=== PATIENT | female | born 1980 | race Asian ===

== ENCOUNTER 2016-11-29 01:03 | Inpatient (IN) | payer OTHER ==
[~2016-11-29] VITALS: Ht 160 cm; Wt 67.1 kg
[2016-11-29 02:03] VITALS: BP 106/66
[2016-11-29] MEDS ORDERED: PREN1TAB89 PO (02:09)
[2016-11-29] MEDS ORDERED: RINGERS SOLUTION,LACTATED 1,000 ML IV PRN (02:19)
[2016-11-29] MEDS ORDERED: RINGERS SOLUTION,LACTATED 1,000 ML IV SCH (02:19)
[2016-11-29] MEDS ORDERED: OXYTOCIN 30 UNITS/LACT RINGERS 500 ML IV ONE (02:19)
[2016-11-29] MEDS ORDERED: MAGNESIUM SULFATE 500 ML IV SCH (02:28)
[2016-11-29] MEDS ORDERED: AMPICILLIN SODIUM 2 GM/NS 100 ML IV ONE (02:30)
[2016-11-29] MEDS ORDERED: CALCIUM GLUCONATE 100 MG/ML 10 ML IVP PRN (02:30)
[2016-11-29] MEDS ORDERED: METOCLOPRAMIDE HCL 5 MG/ML 2 ML VIAL IVP PRN (02:30)
[2016-11-29] MEDS ORDERED: CITRIC ACID/SODIUM CITRATE 30 ML SOLUTION UDCUP PO PRN (02:30)
[2016-11-29] MEDS ORDERED: BETAMETHASONE SOLUSPAN 6 MG/ML 5 ML VIAL IM SCH (02:30)
[2016-11-29] MEDS ORDERED: MAGNESIUM SULFATE 4 GM/WATER 100 ML IV ONE (02:30)
[2016-11-29] MEDS ORDERED: FentaNYL CITRATE-PF 100 MCG/2 ML VIAL IVP PRN (02:30)
[2016-11-29 03:07] LABS: BASOPHILS # (AUTO) 0.01 K/uL (0.00-0.20); BASOPHILS % (AUTO) 0.1 % (0.0-2.0); EOSINOPHILS % (AUTO) 0.84 % (1.0-6.0); HEMATOCRIT 36.5 % (36-46); HEMOGLOBIN 12.4 g/dL (12.0-16.0); LYMPHOCYTES # (AUTO) 1.9 K/uL (1.0-4.8); LYMPHOCYTES % (AUTO) 16.2 % (22.0-44.0); MEAN CORPUSCULAR HEMOGLOBIN 32.9 pg (26.0-34.0); MEAN CORPUSCULAR HGB CONC 33.9 G/dL (31.0-37.0); MEAN CORPUSCULAR VOLUME 97 fL (80-100); MONOCYTES # (AUTO) 0.6 K/uL (0.1-1.0); MONOCYTES % (AUTO) 5.2 % (2.0-9.0); NEUTROPHILS # (AUTO) 8.9 K/uL (1.8-7.7); NEUTROPHILS % (AUTO) 77.7 % (40.0-70.0); RED BLOOD CELL COUNT(AUTO) 3.75 MIL/uL (4.00-5.20); RED CELL DISTRIBUTION WIDTH 12.9 % (11.5-14.5); WHITE BLOOD COUNT (AUTO) 11.4 K/uL (4.5-11.0)
[2016-11-29] MEDS ORDERED: FentaNYL/BUPIV 0.125%/NS/PF 200 ML ED ONE (04:35)
[2016-11-29] MEDS ORDERED: BUPIVACAINE HCL/PF 0.25% 10 ML VIAL ONE (04:38)
[2016-11-29] MEDS ORDERED: FentaNYL/BUPIV 0.125%/NS/PF 200 ML ED PRN (05:12)
[2016-11-29] MEDS ORDERED: ONDANSETRON HCL 4 MG/2 ML VIAL IVP PRN (05:15)
[2016-11-29] MEDS ORDERED: DiphenhydrAMINE HCL 50 MG/ML VIAL IVP PRN (05:15)
[2016-11-29] MEDS: AMPICILLIN SODIUM 1 GM/NS 50 ML IV SCH ×2 (06:49→11:16)
[2016-11-29] MEDS ORDERED: OXYGEN THERAPY IH SCH (08:00)
[2016-11-29] MEDS ORDERED: OXYTOCIN 20 UNITS/LACT RINGERS 1,000 ML IV ONE ×2 (12:55→13:00)
[2016-11-29] MEDS ORDERED: SENNA/DOCUSATE SODIUM 187-50 MG TABLET PO PRN (14:00)
[2016-11-29] MEDS ORDERED: MAGNESIUM HYDROXIDE SUSPENSION 30 ML UDCUP PO PRN (14:00)
[2016-11-29] MEDS ORDERED: LANOLIN 7 GM OINTMENT TP PRN (14:00)
[2016-11-29] MEDS ORDERED: ACETAMINOPHEN/CODEINE 300-30 MG TABLET PO PRN (14:00)
[2016-11-29] MEDS ORDERED: GLYCERIN/WITCH HAZEL LEAF 40 PADS JAR TP PRN (14:00)
[2016-11-29] MEDS ORDERED: BENZOCAINE 20%/MENTHOL 56 GM SPRAY CANISTER TP PRN (14:00)
[2016-11-29] MEDS: IBUPROFEN 600 MG TABLET PO PRN ×2 (17:50→23:50)
[2016-11-30 05:56] LABS: BASOPHILS % (AUTO) 0.1 % (0.0-2.0); EOSINOPHILS % (AUTO) 0.3 % (1.0-6.0); HEMOGLOBIN 9.2 g/dL (12.0-16.0); LYMPHOCYTES # (AUTO) 1.9 K/uL (1.0-4.8); LYMPHOCYTES % (AUTO) 11.2 % (22.0-44.0); MEAN CORPUSCULAR HEMOGLOBIN 32.9 pg (26.0-34.0); MEAN CORPUSCULAR HGB CONC 34.3 G/dL (31.0-37.0); MEAN CORPUSCULAR VOLUME 96 fL (80-100); MONOCYTES % (AUTO) 5.6 % (2.0-9.0); NEUTROPHILS # (AUTO) 14.3 K/uL (1.8-7.7); NEUTROPHILS % (AUTO) 82.8 % (40.0-70.0); RED BLOOD CELL COUNT(AUTO) 2.81 MIL/uL (4.00-5.20); WHITE BLOOD COUNT (AUTO) 17.3 K/uL (4.5-11.0)
[2016-11-30] MEDS: IBUPROFEN 600 MG TABLET PO PRN ×2 (08:29→14:41)
[2016-11-30] MEDS ORDERED: IBUP-2070 PO (15:39)
[2016-11-30] MEDS ORDERED: FERR-89 PO (15:40)
== END 2016-11-30 15:30 | disposition home or self-care (01) | DRG 775 ==
LOC: 4S 01:03 → OBSVTOIN 01:03
PROVIDERS: ADMIT Obstetrics & Gynecology; ATTEND Obstetrics & Gynecology
PROC: 10E0XZZ Delivery of Products of Conception, External Approach (ICD-10-PCS; principal; 2016-11-29)
PROC: 0KQM0ZZ Repair Perineum Muscle, Open Approach (ICD-10-PCS; 2016-11-29)
PROC: 3E0S3CZ (ICD-10-PCS; 2016-11-29)
PROC: 00HU33Z Insertion of Infusion Device into Spinal Canal, Percutaneous Approach (ICD-10-PCS; 2016-11-29)
DX: O60.14X0 Preterm labor third trimester with preterm delivery third trimester, not applicable or unspecified (principal); Z3A.34 34 weeks gestation of pregnancy; Z37.0 Single live birth; O70.1 Second degree perineal laceration during delivery; O71.82 Other specified trauma to perineum and vulva
CPT/HCPCS: 83735; 86850; 86900; 86901; J0290; J0702; J2590; J3475; J3490; J7120

== ENCOUNTER 2018-11-16 23:53 | Inpatient (IN) | payer OTHER ==
[~2018-11-16] VITALS: Ht 172.7 cm; Wt 65.8 kg
[~2018-11-16 23:53] MED LIST: FERR-89 PO; IBUP-2070 PO; PREN1TAB89 PO
[2018-11-16] MEDS ORDERED: OXYTOCIN 30 UNITS/LACT RINGERS 500 ML IV ONE (23:55)
[2018-11-16] MEDS ORDERED: RINGERS SOLUTION,LACTATED 1,000 ML IV SCH (23:55)
[2018-11-16] MEDS ORDERED: RINGERS SOLUTION,LACTATED 1,000 ML IV PRN (23:55)
[2018-11-17] MEDS ORDERED: METOCLOPRAMIDE HCL 5 MG/ML 2 ML VIAL IVP PRN
[2018-11-17] MEDS ORDERED: CITRIC ACID/SODIUM CITRATE 30 ML SOLUTION UDCUP PO PRN
[2018-11-17 00:16] VITALS: BP 123/77
[2018-11-17] MEDS ORDERED: BUPIVACAINE HCL/PF 0.5% 10 ML VIAL ONE (00:28)
[2018-11-17] MEDS ORDERED: LIDOCAINE/PF 1% 30 ML VIAL INJ PRN ×2 (00:30→02:15)
[2018-11-17 00:41] LABS: BASOPHILS % (AUTO) 0.3 % (0.0-2.0); EOSINOPHILS % (AUTO) 0.7 % (1.0-6.0); HEMATOCRIT 37.1 % (36-46); HEMOGLOBIN 12.3 g/dL (12.0-16.0); LYMPHOCYTES # (AUTO) 2.5 K/uL (1.0-4.8); LYMPHOCYTES % (AUTO) 29.3 % (22.0-44.0); MEAN CORPUSCULAR HEMOGLOBIN 32.4 pg (26.0-34.0); MEAN CORPUSCULAR HGB CONC 33.3 G/dL (31.0-37.0); MEAN CORPUSCULAR VOLUME 97 fL (80-100); MONOCYTES # (AUTO) 0.5 K/uL (0.1-1.0); MONOCYTES % (AUTO) 5.7 % (2.0-9.0); NEUTROPHILS # (AUTO) 5.5 K/uL (1.8-7.7); PLATELET COUNT (AUTO) 210 K/uL (150-450); RED BLOOD CELL COUNT(AUTO) 3.81 MIL/uL (4.00-5.20); RED CELL DISTRIBUTION WIDTH 13.2 % (11.5-14.5)
[2018-11-17] MEDS ORDERED: OXYTOCIN 20 UNITS/LACT RINGERS 1,000 ML IV ONE (02:00)
[2018-11-17] MEDS ORDERED: OXYTOCIN 30 UNITS/LACT RINGERS 500 ML IV ONE (02:07)
[2018-11-17] MEDS ORDERED: GLYCERIN/WITCH HAZEL LEAF 40 PADS JAR TP PRN (02:15)
[2018-11-17] MEDS ORDERED: MAGNESIUM HYDROXIDE SUSPENSION 30 ML UDCUP PO PRN (02:15)
[2018-11-17] MEDS ORDERED: OxyCODONE HCL/ACETAMINOPHEN 5-325 MG TABLET PO PRN ×2 (02:15)
[2018-11-17] MEDS ORDERED: IBUPROFEN 800 MG TABLET PO PRN (02:15)
[2018-11-17] MEDS ORDERED: LANOLIN 7 GM OINTMENT TP PRN (02:15)
[2018-11-17] MEDS ORDERED: BENZOCAINE 20%/MENTHOL 56 GM SPRAY CANISTER TP PRN (02:15)
[2018-11-17] MEDS ORDERED: OXYGEN THERAPY IH SCH (08:00)
[2018-11-18 05:55] LABS: BASOPHILS % (AUTO) 0.2 % (0.0-2.0); EOSINOPHILS % (AUTO) 1.1 % (1.0-6.0); HEMATOCRIT 31.6 % (36-46); HEMOGLOBIN 10.5 g/dL (12.0-16.0); LYMPHOCYTES % (AUTO) 26.2 % (22.0-44.0); MEAN CORPUSCULAR HGB CONC 33.4 G/dL (31.0-37.0); MEAN CORPUSCULAR VOLUME 99 fL (80-100); MONOCYTES # (AUTO) 0.7 K/uL (0.1-1.0); MONOCYTES % (AUTO) 5.8 % (2.0-9.0); NEUTROPHILS # (AUTO) 7.5 K/uL (1.8-7.7); NEUTROPHILS % (AUTO) 66.7 % (40.0-70.0); PLATELET COUNT (AUTO)-OB 187 K/uL (150-450); RED BLOOD CELL COUNT(AUTO) 3.19 MIL/uL (4.00-5.20); RED CELL DISTRIBUTION WIDTH 13.4 % (11.5-14.5)
[2018-11-18] MEDS ORDERED: DSS100 PO (09:34)
== END 2018-11-18 11:51 | disposition home or self-care (01) | DRG 807 ==
LOC: 4S 23:53 → PREOBSVTOIN 12-15
PROVIDERS: ADMIT Obstetrics & Gynecology; ATTEND Obstetrics & Gynecology
PROC: 10E0XZZ Delivery of Products of Conception, External Approach (ICD-10-PCS; principal; 2018-11-17)
PROC: 0HQ9XZZ Repair Perineum Skin, External Approach (ICD-10-PCS; 2018-11-17)
PROC: 3E0R3BZ Introduction of Anesthetic Agent into Spinal Canal, Percutaneous Approach (ICD-10-PCS; 2018-11-17)
PROC: 00HU33Z Insertion of Infusion Device into Spinal Canal, Percutaneous Approach (ICD-10-PCS; 2018-11-17)
DX: O70.0 First degree perineal laceration during delivery (principal); Z37.0 Single live birth; Z3A.37 37 weeks gestation of pregnancy
CPT/HCPCS: 86850; 86900; 86901; J2590; J3490; J7120